=== PATIENT | male | born 1955 | race Caucasian/White ===

== ENCOUNTER 2018-11-23 09:26 | Outpatient (CLI) | payer BC ==
--- NOTE | 2018-11-23 10:56 | RAD ---
CHEST 2 VIEWS: HISTORY: Pneumonia. COMPARISON: 11/16/2016. FINDINGS: Normal cardiac silhouette. The pulmonary vessels and hilum are normal. There is minimal blunting of the costophrenic angle. The right costophrenic angle is clear. No consolidation or mass. No pneum othorax or osseous abnormalities. IMPRESSION: Minimal blunting of the left costophrenic angle likely due to atelectasis. POS: [facility]
== END 2018-11-23 09:27 | disposition home or self-care (01) ==
LOC: BICRAD 09:26
PROVIDERS: ATTEND Family Medicine
DX: J18.9 Pneumonia, unspecified organism (principal)
CPT/HCPCS: 71046

== ENCOUNTER 2018-12-07 10:00 | Outpatient (CLI) | payer BC ==
--- NOTE | 2018-12-07 11:28 | ULT ---
ULTRASOUND ABDOMEN COMPLETE: DATE: 12/07/2018. HISTORY: A 62-year-old male with alcoholic cirrhosis, K70.30; gastric varices, I86.04; and lymphoma, C85.90. TECHNIQUE: Helms-scale ultrasound evaluation of the liver, gallbladder, spleen, pancreas, common bile duct, kidne ys, abdominal aorta, and inferior vena cava (IVC). FINDINGS: The spleen has a lobular hilum, and measures approximately 15 x 6.5 x 6.5 cm. There are dilated vein s near the splenic hilum. No free fluid identified. Hepatic margins are nodular, and the liver is small. Hepatic echotexture is coarse. Gallbladder wall thickness is normal. No pericholecystic fluid. A tiny amount of what is probably s ludge in the gallbladder lumen. Common duct caliber 5 mm. No hydronephrosis of bilateral kidneys. No abdominal aortic aneurysm. No gross abnormality of visualized portion of IVC adjacent to the liver. Pancreas poorly visualized. IMPRESSION: 1. Hepatic cirrhosis. 2. Splenomegaly. 3. Varices near the splenic hilum. 4. To evaluate the stated history of lymphoma, CT should be considered. AALIYAH Cervantes POS: [facility]
== END 2018-12-07 10:01 | disposition home or self-care (01) ==
LOC: SCSULT 10:00
PROVIDERS: ATTEND Internal Medicine
DX: K70.30 Alcoholic cirrhosis of liver without ascites (principal); I86.4 Gastric varices; C85.90 Non-Hodgkin lymphoma, unspecified, unspecified site; R16.1 Splenomegaly, not elsewhere classified; I86.8 Varicose veins of other specified sites
CPT/HCPCS: 76700

== ENCOUNTER 2021-06-05 07:55 | Outpatient (CLI) | payer MEDICARE, BC ==
[2021-06-05 09:35] LABS: Anion Gap 11 mmol/L (10-20); BUN (Urea Nitrogen) 11 mg/dL (8.4-25.7); Calc. Creatinine Clearance 0 mL/min (70-130); Calcium 8.7 mg/dL (7.8-10.44); Carbon Dioxide 25 mmol/L (23-31); Chloride 109 mmol/L (98-107); Glucose 122 mg/dL (80-115); Potassium 4.6 mmol/L (3.5-5.1); Sodium 140 mmol/L (136-145)
[2021-06-05 09:57] LABS: Hemoglobin 13.4 g/dL (13.5-17.5)
[2021-06-06 01:29] LABS: SARS-CoV-2 PCR by NAA Not Detected (NotDetected)
== END 2021-06-05 07:56 | disposition home or self-care (01) ==
LOC: LABBT 07:55
PROVIDERS: ATTEND Otolaryngology Plastic Surgery within the Head & Neck
DX: Z01.818 Encounter for other preprocedural examination (principal); J38.3 Other diseases of vocal cords; R06.1 Stridor; R13.10 Dysphagia, unspecified; R05 Cough; R49.0 Dysphonia; R63.4 Abnormal weight loss; R53.82 Chronic fatigue, unspecified; J34.2 Deviated nasal septum; Z20.822 Contact with and (suspected) exposure to COVID-19
CPT/HCPCS: 80048; 85014; 85018; 93005; U0003; U0005; 93010

== ENCOUNTER 2021-06-10 07:29 | Day surgery (SDC) | payer MEDICARE, BC ==
[2021-06-09 09:35] VITALS: BMI 28.1
[2021-06-10] MEDS ORDERED: EPINEPHrine 1 MG/ML AMP ONE (08:55)
[2021-06-10] MEDS ORDERED: Fentanyl 100 MCG/2 ML VIAL ONE (09:08)
[2021-06-10] MEDS ORDERED: Lidocaine 1% w/Epinephrine 1:100K 20 ML VIAL ONE (09:10)
[2021-06-10] MEDS ORDERED: AFRIN NASAL MIST 15 ML BOT ONE (09:10)
[2021-06-10] MEDS ORDERED: Lidocaine 1% PF 5 ML VIAL ONE (09:18)
[2021-06-10] MEDS ORDERED: EPINEPHrine 1 MG/10 ML Abboject SYRINGE ONE (09:18)
[2021-06-10] MEDS ORDERED: Succinylcholine 200 MG/10 ml SYRINGE FS ONE (09:18)
[2021-06-10] MEDS ORDERED: Ondansetron PF 4 MG/2 ML Vial ONE (09:18)
[2021-06-10] MEDS ORDERED: PROPOFOL 200 MG/20 ML VIAL ONE (09:18)
[2021-06-10] MEDS ORDERED: Dexamethasone 20 MG/5 ML VIAL ONE (09:18)
[2021-06-10] MEDS ORDERED: Albuterol Sulfate HFA (OR ONLY) ONE (09:18)
[2021-06-10] MEDS ORDERED: traMADol HCl 50 MG TAB ONE (12:20)
== END 2021-06-10 13:25 | disposition home or self-care (01) ==
LOC: SDC 07:29
PROVIDERS: ATTEND Otolaryngology Plastic Surgery within the Head & Neck
PROC: 0CBT8ZX Excision of Right Vocal Cord, Via Natural or Artificial Opening Endoscopic, Diagnostic (ICD-10-PCS; principal; 2021-06-10)
PROC: 09BQ8ZZ Excision of Right Maxillary Sinus, Via Natural or Artificial Opening Endoscopic (ICD-10-PCS; 2021-06-10)
DX: J32.0 Chronic maxillary sinusitis (principal); B48.8 Other specified mycoses; C85.19 Unspecified B-cell lymphoma, extranodal and solid organ sites; R13.10 Dysphagia, unspecified; J34.89 Other specified disorders of nose and nasal sinuses; R53.82 Chronic fatigue, unspecified; J34.2 Deviated nasal septum; R63.4 Abnormal weight loss; Z68.28 Body mass index [BMI] 28.0-28.9, adult; Z88.5 Allergy status to narcotic agent; Z88.8 Allergy status to other drugs, medicaments and biological substances
CPT/HCPCS: 87070; 87205; 88184; 88304; 88305; 88365; J0171; J1100; J2405; J2704; J3010; J7620

== ENCOUNTER 2021-06-23 11:34 | Outpatient (CLI) | payer MEDICARE, BC | END 2021-06-23 11:35 | disposition home or self-care (01) | LOC: PET 11:34 | PROVIDERS: ATTEND Internal Medicine Hematology & Oncology | DX: C82.03 Follicular lymphoma grade I, intra-abdominal lymph nodes (principal); K74.60 Unspecified cirrhosis of liver; R59.0 Localized enlarged lymph nodes; K76.6 Portal hypertension | CPT/HCPCS: 78815; A9552 ==

== ENCOUNTER 2021-06-25 15:39 | Outpatient (CLI) | payer MEDICARE, BC ==
[2021-06-25 16:52] LABS: Hemoglobin 12.7 g/dL (13.5-17.5); Mean Corpuscular HGB CONC 35.1 g/dL (32.0-36.0); Mean Corpuscular Hemoglobin 31.8 pg (27.0-33.0); Mean Corpuscular Volume 90.5 fl (81.2-95.1); Mean Platelet Volume 10.5 fl (7.4-10.4); Platelet Count 143 10x3/uL (150-450); RBC Distribution Width 15.6 % (11.5-14.5); White Blood Cell (WBC) Count 4.3 10x3/uL (3.5-10.5)
[2021-06-25 16:56] LABS: INR-International Normal Ratio 1.2; PTT 27.3 sec (22.0-33.0); Prothrombin Time 12.7 sec (9.5-12.1)
[2021-06-25 17:00] LABS: ALT (SGPT) 25 U/L (8-55); AST (SGOT) 33 U/L (5-34); Albumin 3.1 g/dL (3.4-4.8); Alkaline Phosphatase 131 U/L (40-110); Bilirubin, Total 2.5 mg/dL (0.2-1.2); Protein, Total 5.1 g/dL (5.8-8.1)
[2021-06-26 17:01] LABS: SARS-CoV-2 PCR by NAA Not Detected (NotDetected)
== END 2021-06-25 15:40 | disposition home or self-care (01) ==
LOC: LABBT 15:39
PROVIDERS: ATTEND Surgery
DX: Z01.812 Encounter for preprocedural laboratory examination (principal); Z20.822 Contact with and (suspected) exposure to COVID-19
CPT/HCPCS: 80076; 85027; 85610; 85730; U0003; U0005

== ENCOUNTER 2021-06-29 10:56 | Day surgery (SDC) | payer MEDICARE, BC ==
[2021-06-26 13:58] VITALS: BMI 27.8
[2021-06-29] MEDS ORDERED: Bupivacaine 0.25% HCL 30 ML VIAL ONE (13:08)
[2021-06-29] MEDS ORDERED: Lidocaine 1% w/Epinephrine 1:100K 30 ML VIAL ONE (13:08)
[2021-06-29] MEDS ORDERED: Fentanyl 100 MCG/2 ML VIAL ONE (13:57)
[2021-06-29] MEDS ORDERED: Propofol 500 MG/50 ML VIAL ONE (13:57)
[2021-06-29] MEDS ORDERED: PROPOFOL 200 MG/20 ML VIAL ONE (14:06)
== END 2021-06-29 13:55 | disposition home or self-care (01) ==
LOC: SDC 10:56
PROVIDERS: ATTEND Surgery
PROC: 0JH63WZ Insertion of Totally Implantable Vascular Access Device into Chest Subcutaneous Tissue and Fascia, Percutaneous Approach (ICD-10-PCS; principal; 2021-06-29)
PROC: 02HV33Z Insertion of Infusion Device into Superior Vena Cava, Percutaneous Approach (ICD-10-PCS; 2021-06-29)
DX: C85.90 Non-Hodgkin lymphoma, unspecified, unspecified site (principal); Z88.8 Allergy status to other drugs, medicaments and biological substances
CPT/HCPCS: 71045; C1788; J0690; J1642; J2704; J3010; S0020

== ENCOUNTER → 2021-07-01 | Day surgery (SDC) | payer MEDICARE, BC | LOC: ULT 12:46 → RAD 12:47 | PROVIDERS: ATTEND Family Medicine | DX: C83.39 Diffuse large B-cell lymphoma, extranodal and solid organ sites (principal); I08.3 Combined rheumatic disorders of mitral, aortic and tricuspid valves; Z88.8 Allergy status to other drugs, medicaments and biological substances | CPT/HCPCS: 93306 ==

== ENCOUNTER 2021-09-24 09:05 | Outpatient (CLI) | payer MEDICARE, BC | END 2021-09-24 09:06 | disposition home or self-care (01) | LOC: PET 09:05 | PROVIDERS: ATTEND Internal Medicine Hematology & Oncology | DX: C83.30 Diffuse large B-cell lymphoma, unspecified site (principal); K74.60 Unspecified cirrhosis of liver; I83.90 Asymptomatic varicose veins of unspecified lower extremity; R18.8 Other ascites; J90 Pleural effusion, not elsewhere classified; N43.3 Hydrocele, unspecified; N62 Hypertrophy of breast | CPT/HCPCS: 78815; A9552 ==

== ENCOUNTER 2021-10-07 13:37 | Day surgery (SDC) | payer MEDICARE, BC ==
[2021-10-07] MEDS ORDERED: Acetaminophen 500 MG TAB PO SCH (14:00)
[2021-10-07] MEDS ORDERED: diphenhydrAMINE 25 MG CAP PO SCH (14:00)
[2021-10-07 22:12] LABS: Band 12 % (5-11); Hemoglobin 9.4 g/dL (14.0-18.0); Lymphocytes 12 % (21-51); MDiff Complete? YES; Mean Corpuscular HGB CONC 35.7 g/dL (32.0-36.0); Mean Corpuscular Hemoglobin 32.6 pg (27.0-31.0); Mean Corpuscular Volume 91.5 fL (78.0-98.0); Mean Platelet Volume 14.3 fL (7.4-10.4); Monocytes 16 % (0-10); Neutrophil 60 % (42-75); Ovalocytes SLIGHT = 2-5 cells (100X) (0-1/hpf); Platelet Count 16 thou/uL (130-400); Platelet Morphology Comment Appears Decreased; Polychromasia SLIGHT = 2-3 cells (100X) (0-2/hpf); RBC Distribution Width 14.7 % (11.5-14.5); Red Blood Cell (RBC) Count 2.87 mill/uL (4.70-6.10); Tear Drops SLIGHT = 2-5 cells (100X) (0-1/hpf); White Blood Cell (WBC) Count 1.3 thou/uL (4.8-10.8)
[2021-10-07 23:11] VITALS: BP 132/60; TEMP 99
== END 2021-10-07 21:05 | disposition home or self-care (01) ==
LOC: ONC/OP 13:37 → MSONC 13:41 → ONC/OP 21:05
PROVIDERS: ATTEND Internal Medicine Hematology & Oncology
PROC: 30233N1 Transfusion of Nonautologous Red Blood Cells into Peripheral Vein, Percutaneous Approach (ICD-10-PCS; principal; 2021-10-07)
DX: D64.9 Anemia, unspecified (principal); D69.6 Thrombocytopenia, unspecified
CPT/HCPCS: 36430; 85025; 86850; 86900; 86901; J1642; P9016

== ENCOUNTER 2022-02-18 14:03 | Outpatient (CLI) | payer MEDICARE, BC | END 2022-02-18 14:04 | disposition home or self-care (01) | LOC: BICMAMMO 14:03 | PROVIDERS: ATTEND Neurological Surgery | DX: Z13.820 Encounter for screening for osteoporosis (principal); M54.50 Low back pain, unspecified; M81.0 Age-related osteoporosis without current pathological fracture; M85.88 Other specified disorders of bone density and structure, other site; M48.56XA Collapsed vertebra, not elsewhere classified, lumbar region, initial encounter for fracture | CPT/HCPCS: 77080 ==

== ENCOUNTER 2022-02-19 14:05 | Outpatient (CLI) | payer MEDICARE, BC | END 2022-02-19 14:06 | disposition home or self-care (01) | LOC: TBSIIMAG 14:05 | PROVIDERS: ATTEND Physician Assistant | DX: M54.50 Low back pain, unspecified (principal); M48.56XA Collapsed vertebra, not elsewhere classified, lumbar region, initial encounter for fracture | CPT/HCPCS: 72070; 72100 ==

== ENCOUNTER 2022-03-30 08:45 | Outpatient (CLI) | payer MEDICARE, BC | END 2022-03-30 08:46 | disposition home or self-care (01) | LOC: PET 08:45 | PROVIDERS: ATTEND Internal Medicine Hematology & Oncology | DX: C82.03 Follicular lymphoma grade I, intra-abdominal lymph nodes (principal); C83.39 Diffuse large B-cell lymphoma, extranodal and solid organ sites | CPT/HCPCS: 78815; A9552 ==

== ENCOUNTER 2022-09-30 08:45 | Outpatient (CLI) | payer MEDICARE, BC | END 2022-09-30 08:46 | disposition home or self-care (01) | LOC: PET 08:45 | PROVIDERS: ATTEND Internal Medicine Hematology & Oncology | DX: C83.39 Diffuse large B-cell lymphoma, extranodal and solid organ sites (principal); C82.03 Follicular lymphoma grade I, intra-abdominal lymph nodes | CPT/HCPCS: 78815; A9552 ==

== ENCOUNTER 2023-08-24 10:15 | Outpatient (CLI) | payer MEDICARE | END 2023-08-24 10:16 | disposition home or self-care (01) | LOC: PET 10:15 | PROVIDERS: ATTEND Internal Medicine Hematology & Oncology | DX: C83.39 Diffuse large B-cell lymphoma, extranodal and solid organ sites (principal); R59.0 Localized enlarged lymph nodes | CPT/HCPCS: 78815; A9552 ==